=== PATIENT | male | born 1970 | race Caucasian/White ===

== ENCOUNTER 2021-10-30 12:37 | Emergency (ER) | payer SELFPAY ==
[2021-10-30] VITALS (12 sets, daily range): BP systolic 136–147; BP diastolic 91–106; PULSE 69–86; RESP 7–26; TEMP 36.7–37; O2SAT 97–99
--- NOTE | 2021-10-30 12:30 | RT.EKG_ITS ---
APPROVED REPORT Exam: Resting ECG Reason for Exam: Patient Location: E HR:73 bpm ECG Measurements Heart Rate 73 AXIS HI 124 P 44 QRSd 82 QRS 58 QT 386 T 57 QTc 424 Conclusion Sinus rhythm...normal P axis, V-rate 60- 99 normal sinus rhythm, normal axis, normal intervals, nonischemic
--- NOTE | 2021-10-30 13:00 | DI.CT_ITS ---
Exam(s) CT HEAD WO EXAM: CT HEAD WO CLINICAL HISTORY: left arm paresthesias. TECHNIQUE: Imaging Protocol: Axial computed tomography images with coronal and sagittal reformatted images were created and reviewed COMPARISON: No exams were available for comparison FINDINGS: Ventricles and Extra axial spaces: Normal in size and morphology for the patient's age. Hemorrhage: None. Cerebral parenchyma: Normal. Midline shift: None. Brainstem/Cerebellum: Normal. Calvarium: Normal. Visualized Paranasal sinuses/Mastoids: Clear. Soft Tissues: Unremarkable. IMPRESSION: No acute intracranial process. RADIATION DOSE DELIVERED: 786.56mGy.cm Total DLP DATA REPOSITORY: All CT scans at this facility are submitted to the National Radiology Data Registry (NRDR) Dose Index Registry (DIR) with the [employer] (A[employer]). RADIATION OPTIMIZATION: All CT scans at this facility use at least one of these dose optimization te chniques: automated exposure control; mA and/or kV adjustment per patient size (includes targeted exa ms where dose is matched to clinical indication); or iterative reconstruction.
--- NOTE | 2021-10-30 13:09 | W.ED.GENAD ---
Discharge Plan Disposition Patient Disposition: HOME Condition: Stable Discharge Details Clinical Impression: Left arm numbness, Chest pain Primary Care Provider: Unknown,Unknown ED Provider: Mary Tellez Home Meds and New Rx's Prescriptions: No Action No Known Home Meds 0RF Discharge Instructions Instructions: Chest Pain (ED), Paresthesia (ED) Additional Instructions: Your evaluation here is reassuring. Your EKG, chest x-ray, labs and imaging of the brain are all reassuring with no evidence of acute heart attack stroke. As we discussed, I am still concerned about your intermittent chest discomfort and would like for you to stress test for further evaluation. I would also like for you to have follow-up with a primary care provider so they can evaluate you for other underlying causes of your discomfort and screening for risk factor. I have asked her care management team to assist in arranging for primary care follow-up in the next 1 to 2 weeks. In regard to your altered sensation in your left arm, I am concerned that this may be associated with the discomfort you are having in your neck and may be something like a pinched nerve. This too can be evaluated by your primary care as this may need further evaluation and work-up. Please encourage gentle stretching. You may use Tylenol and/or ibuprofen as needed for discomfort. Please try to limit activities that cause increased sensory deficits. If develop fever/chills, increased pain, weakness, recurrent chest pain, shortness of breath or other new/worsening symptoms to seek care urgently once again. Discharge Data Discharge Date/Time-TO BE ENTERED AT DEPARTURE: 10/30/21 16:13 Medical Decision Making Patient is a pleasant 51-year-old [id number] male presenting today with chief complaint of left arm numbness. He reports that this began over the past several week. He denies any limitations associated with this. Reports that is not a true numbness more diminished sensation compared to contralateral side. 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 More so, the patient's parents and limited sensation and the left forearm and left shoulder. He denies noticing this at all when he is at work or limiting his activities. He also reports he has been having some intermittent chest discomfort, particularly occurs when at rest. The most severe episode was 2 weeks ago during which time he states that the pain is located in the center of his chest and lasts for about 15 minutes. Insidious onset and improvement of his symptoms. He reports that for the few weeks prior to that, he did have some chest discomfort but is not had any since then. He denies any cough. No shortness of breath. No fevers or chills. The onset of the chest discomfort as well as the left arm symptoms did not coincide. Patient states that when he had the chest discomfort he did have some shortness of breath associated with it but has not had any since then. No recent period of being sedentary or recent travel. Patient reports that he smokes around 1 pack/day. On exam, patient appears nontoxic. Neuro exam is intact. He has sensation intact in the LUE except for over large scared area on the left thenar emenance from previous trauma. He reports that this is chronic. 5/5 strength, equal BUE. Intact capillary refill and pulses. Full ROM. Pain elicited aong the left side with Spurling's test. Reports that he has also had some neck pain, more ont he left side. No midline tenderness/step off. Lungs are clear, normal cardiac exam. Differential is quite broad. In regard to CP, his discomfort was fairly atypical. Came on at rest, has not experienced with any exertion. No SOB. Hx and exam not consistent with PE or dissection. Considered ACS although low pretest probability. In regard to the LUE sensory changes, considered possible atypical stroke. With the + Spurling's, more likely nerve impingement or radiculopathy. Will obtain ECG, blood work and imaging. Discussed with patiet who is in agreement. ECG reviewed by physician, no acute ischemic changes noted. Labs reviewed. No significant abnormality. Troponin is WNL. As he has been CP free x 2 weeks, do not feel that repeat is necessary at this time. CXR reviewed by radiologist: PLEURAL SPACE: No pleural effusion or pneumothorax. BONE:Unremarkable for age.? IMPRESSION: No acute abnormality.? CT head reviewed by radiologist: FINDINGS: Ventricles and Extra axial spaces: Normal in size and morphology for the patient's age. Hemorrhage: None. Cerebral parenchyma: Normal. Midline shift: None. Brainstem/Cerebellum: Normal. Calvarium: Normal. Visualized Paranasal sinuses/Mastoids: Clear. Soft Tissues: Unremarkable. IMPRESSION: No acute intracranial process. Discussed findings with [facility] patient. As he has risk factors for ACS, I do feel that stres test would be appropriate. HEART score 2, I do not feel he requires admission. He does need local PCP. May need EMG vs. MRI for further diagnostics of LUE sensory deficit. AGain, the deficit is more subjective as his sensation seemed intact at this time but reported to be altered compared to daniel contralateral side. Have asked care management to assist with PCP. Encouraged smoking cessation. Strict return precautions discussed. All of his questions and concerns were addressed, he is in agreement with thisplan. HPI General Date/Time Provider Initiated Documentation: 10/30/21 12:40. Limitations to Documentation: no limitations. Information obtained by: patient, family (daughter) and RN notes reviewed. History of Present Illness 51 year old M presents to the emergency department with the chief complaint of chest pain, left arm numbness, described as mild, Quality is described as other (denies any pain, currently just endorsing diminished sensation LUE), and is localized to the left and upper extremity. Patient extremity. Patient started experiencing this week(s) (CP was x 1 two weeks ago, altered sensation acute on chronic) and it has been constant (CP resolved, LUE sensation continues). improves with No relieving factors improve symptom(s), Movement worsens symptoms (does not notice the altered sensation when at work, no CP with exertion) . Patient notes chest pain; denies cough, diaphoresis, fever/chills, malaise, nausea/vomiting, rash, shortness of breath and weakness (sensory change does not limit ADLs). Patient did receive the following treatments prior to arrival, none Related Data Home Medications Medication Instructions Recorded Confirmed Unknown [No Known Home Meds] 10/30/21 10/30/21 Allergies Allergy/AdvReac Type Severity Reaction Status Date / Time No Known Allergies Allergy Unverified 10/30/21 13:41 General Stated Complaint: Chest Pain SHERINE: 3 Review of Systems Constitutional Constitutional: Reports as per HPI, Denies chills, Denies fever(s), Denies headache(s), Denies lethargy, Denies poor appetite and Denies weakness Eyes Eyes: Denies change in vision ENT Ears, Nose, Mouth, and Throat: Denies dizziness, Denies headache(s) and Reports neck pain Cardiovascular Cardiovascular: Reports as per HPI, Denies dyspnea and Denies dyspnea on exertion Respiratory Respiratory: Reports as per HPI, Denies chest congestion, Denies cough, Denies pain on inspiration, Denies pain with cough, Denies dyspnea, Denies dyspnea on exertion and Denies wheezing Gastrointestinal Gastrointestinal: Reports as per HPI, Denies abdominal pain, Denies diarrhea, Denies nausea and Denies vomiting Genitourinary Genitourinary: Denies system reviewed and no additional complaints, except as documented (denies change in urinary habits) Musculoskeletal Musculoskeletal: Reports as per HPI, Denies abnormal gait, Denies back pain, Reports neck pain and Reports numbness Integumentary/Breasts Skin/Breast: Reports as per HPI and Denies rash Neurologic Neurologic: Reports as per HPI, Denies abnormal movements, Denies abnormal speech, Denies abnormal gait, Denies dizziness, Denies headache(s), Denies lack of coordination, Denies localized weakness, Reports numbness, Reports radicular pain and Denies weakness Allergic/Immunologic Allergic/Immunologic: Denies wheezing PFSH All Active Problems (Updated 10/30/21 @ 16:07 by NIR Ahumada) Left arm numbness (Acute) Chest pain (Acute) Social History Smoking/Tobacco Use Status: Current every day Tobacco Type: cigarettes Smoking risk assessment performed?: Yes Alcohol Intake: current Alcohol Intake frequency: a few times a week Alcohol type: beer and hard liquor Drug use: Never Substance use type: does not use Do you feel safe at home: Yes Do you feel safe in your relationship?: Yes Exam Const General: cooperative, healthy appearing, comfortable, no acute distress and well developed Nutritional Appearance: average body habitus and well nourished Orientation: alert, awake and oriented x3 HENMT Head: normal to inspection Ears: hearing grossly normal bilaterally Mouth: moist mucous membranes Chest Chest: normal inspection of the chest, normal palpation of entire chest wall and no crepitus Resp Effort & Inspection: normal respiratory effort, able to speak in complete sentences and no respiratory distress Auscultation: clear to auscultation bilaterally, no rales, no rhonchi and no wheezes Cardio Rate: regular rate Rhythm: regular rhythm Heart Sounds: S1 normal and S2 normal Back/Spine/Pelvis Back: no CVA tenderness Cervical Spine: normal cervical lordosis, cervical ROM normal, pain with cervical ROM (along left side, positive Spurlings on the left), No cervical spasm, No cervical spinal tenderness (no midline tendernes) and No step off deformity Thoracic/Lumbar Spine: thoracic and lumbar spine normal to inspection Skin General skin exam: no rashes or lesions noted Trauma: no lacerations or abrasions Neuro General: patient alert, patient awake and patient oriented x3 Cranial Nerves: CN's II-XI intact bilaterally Cognition: normal cognition Speech: speech normal Gait: normal gait Motor: muscle tone normal throughout, strength 5/5 throughout, no pronator drift and no movement abnormalities noted Sensory Exam: no sensory deficits noted DTR's: Rt Triceps: 2+, Lt Triceps: 2+, Rt Biceps: 2+, Lt Biceps: 2+, Rt Brachioradialis: 2+ and Lt Brachioradialis: 2+ Extrem General: normal to inspection, capillary refill normal, no pedal edema, no calf tenderness and normal gait Psych Appearance: grossly normal and well kempt Mental Status: mental status grossly normal Speech and Movement: speech and movement normal Course Vital Signs Vital signs: Vital Signs Temperature 36.7 C 10/30/21 12:44 Pulse 75 10/30/21 12:44 Respiratory Rate 18 10/30/21 12:44 Blood Pressure 147/101 H 10/30/21 12:44 Pulse Oximetry 98 10/30/21 12:44 Temperature 36.7 C 10/30/21 12:44 Temperature Source Temporal Artery Scan 10/30/21 12:44 Pulse 75 10/30/21 12:44 Respiratory Rate 18 10/30/21 12:44 Blood Pressure 147/101 H 10/30/21 12:44 Blood Pressure Position Sitting 10/30/21 12:44 Pulse Oximetry 98 10/30/21 12:44 Oxygen Delivery Method Room Air 10/30/21 12:44 Oxygen Flow Rate 0 10/30/21 12:44
[2021-10-30 13:24] LABS: Absolute Basophil Count 0.05 10^3/uL (0.0-0.2); Absolute Eosinophil Count 0.08 10^3/uL (0.0-0.7); Absolute Lymphocyte Count 1.44 10^3/uL (1.2-3.4); Absolute Monocyte Count 0.37 10^3/uL (0.1-0.8); Absolute Neutrophil Count 2.85 10^3/uL (1.2-6.7); Eosinophils % 1.7; HCT 43.1 % (40.0-50.0); HGB 14.5 g/dL (13.5-17.5); Lymphocytes % 30.1; MCH 32.3 pg (27.0-33.0); MCHC 33.6 % (32.0-36.0); MPV 9.1 fL (8.0-11.0); Monocytes % 7.7; Neutrophils % 59.5; Platelet Count 281 10^3/uL (130-400); RBC 4.49 10^6/uL (4.36-5.78); RDW-SD 42.8 fL; WBC 4.79 10^3/uL (4.4-10.8)
[2021-10-30 13:39] LABS: ALT 30 U/L (16-63); AST 20 U/L (15-37); Albumin 3.6 g/dL (3.4-5.0); Alkaline Phosphatase 90 U/L (46-116); Anion Gap 3.7 mmol/L (3-11); BUN 11 mg/dL (7-18); Bilirubin, Total 0.5 mg/dL (0.2-1.0); CO2 31.3 mmol/L (21.0-32.0); CREATININE 1.1 mg/dL (0.70-1.30); Chloride 104 mmol/L (98-107); Glucose 104 mg/dL (74-106); Magnesium 2.1 mg/dL (1.8-2.4); Potassium 4.4 mmol/L (3.5-5.1); Sodium 139 mmol/L (136-145); Total Protein 8.1 g/dL (6.4-8.2); Troponin I < 50 ng/L (<or=60)
--- NOTE | 2021-10-30 14:01 | DI.RAD_ITS ---
Exam(s) XR CHEST 2V PA LATERAL EXAM: XR CHEST 2V PA LATERAL CLINICAL HISTORY: intermittent CP, left arm sensation changes TECHNIQUE: 2D digital imaging was performed. COMPARISON: No exams were available for comparison FINDINGS: MEDIASTINUM: Normal. HEART: Normal. PULMONARY VASCULATURE: Normal. LUNGS: Clear. PLEURAL SPACE: No pleural effusion or pneumothorax. BONE:Unremarkable for age. IMPRESSION: No acute abnormality. DATA REPOSITORY: RADIATION DOSE DELIVERED:
[2021-10-30 16:03] LABS: Troponin I < 50 ng/L (<or=60)
--- NOTE | 2021-10-30 17:55 | NUR.NOTE ---
Referral made for PCP establishment, put the inof in the care manger's box for follow up.
== END 2021-10-30 16:13 | disposition home or self-care (01) ==
PROVIDERS: Emergency Provider Physician Assistant
DX: R20.0 Anesthesia of skin (principal); R07.9 Chest pain, unspecified; R20.2 Paresthesia of skin
CPT/HCPCS: 36410; 36415; 80053; 93005; 99285; 70450; 71046; 83735; 84484; 85025; 93010; 99284